=== PATIENT | male | born 1930 | race Caucasian/White ===

== ENCOUNTER 2017-01-22 09:22 | Emergency (ER) | payer MEDICARE, BC ==
[~2017-01-22 09:22] MED LIST: ASAB PO; LIPITOR10 PO; LIPITOR20 PO; MSCONT15 PO; MULTIPLE VIT PO; RAPAFLO
[2017-01-22 11:01] LABS: BASOPHILS 0.1 %; BASOPHILS ABSOLUTE 0.01 10/3/uL (0.0-0.16); EOSINOPHILS 2.3 %; EOSINOPHILS ABSOLUTE 0.27 10/3/uL (0.0-0.53); HEMATOCRIT 42.5 % (40.0-51.0); HEMOGLOBIN 14.5 g/dL (13.6-17.8); IMMATURE GRANULOCYTES 0.2 %; IMMATURE GRANULOCYTES ABSOLUTE 0.02 10/3/uL (0.0-0.11); LYMPHOCYTES 10.5 %; LYMPHOCYTES ABSOLUTE 1.21 10/3/uL (0.67-4.30); MEAN CORPUS HGB CONC 34.1 g/dL (32.0-36.0); MEAN CORPUSCULAR HEMOGLOB 34.1 pg (26.0-34.0); MEAN PLATELET VOLUME 9.8 fL (9.2-13.0); MONOCYTES 7.8 %; NEUTROPHILS 79.1 %; NEUTROPHILS ABSOLUTE 9.08 10/3/uL (2.02-8.40); PLATELET COUNT 193 10/3/uL (150-400); RBC DISTRIBUTION WIDTH 13.2 % (12.0-16.0); RED CELL COUNT 4.25 10/6/uL (4.7-6.1)
[2017-01-22 11:02] LABS: ER CBC TAT 0 Hrs 05 Mins; MANUAL DIFF NO %; WHITE BLOOD CELLS 11.5 10/3/uL (4.5-10.5)
[2017-01-22 11:06] LABS: ASCORBIC ACID (UR NOT ORDER) NEG (NEG); BILIRUBIN, URINE NEGATIVE (NEG); ER URINALYSIS TAT 0 Hrs 09 Mins; KETONE, URINE NEGATIVE (NEG); LEUKOCYTE ESTERASE(NOT OR NEG (NEG); NITRITE (URINE) NEG (NEG); WBC (NOT ORDERED) (RFLEX) 4 (0-5)
[2017-01-22 11:13] LABS: INTERNATIONAL NORMAL RATI 1.1 UNITS (-); PROTIME (NOT ORD) 14.4 SEC (12.0-14.5)
[2017-01-22 11:19] LABS: BUN (BLOOD UREA NITROGEN) 24 MG/DL (6-23); CALCIUM, SERUM 8.8 MG/DL (8.5-10.4); CHEST PAIN PROFILE TAT 0 Hrs 22 Mins; CHLORIDE, SERUM 105 MMOL/L (96-112); CO2 (CARBON DIOXIDE) 29 MMOL/L (24-34); CREATININE 1.25 MG/DL (0.70-1.30); GFR AFRICAN AMERICAN 60 ML/MIN (>=60); GFR NON AFRICAN AMERICAN 52 ML/MIN (>=60); POTASSIUM, SERUM 3.8 MMOL/L (3.5-5.3); SODIUM, SERUM 141 MMOL/L (135-148); TROPONIN I <0.02 NG/ML (<0.05)
[2017-01-22 11:21] LABS: GLUCOSE, SERUM 108 MG/DL (60-99)
[2017-07-26] MEDS ORDERED: NAMENDA10 MG PO (11:17)
[2017-07-26] MEDS ORDERED: TRIAMCINOLONE C80 GM TOP (11:17)
[2017-07-26] MEDS ORDERED: VITAMIN D2000 UNIT PO (11:17)
[2017-07-26] MEDS ORDERED: LIPITOR20 PO (11:18)
[2017-07-26] MEDS ORDERED: MULTIVIT/MIN PO (11:19)
[2017-07-26] MEDS ORDERED: ARICEPT5 PO (11:19)
[2017-07-26] MEDS ORDERED: ARICEPT10 PO (11:20)
[2017-07-26] MEDS ORDERED: MIRALAX POWDER1 PKT PO (11:20)
[2017-07-26] MEDS ORDERED: VITAMIN B PO (11:21)
== END 2017-01-22 15:43 | disposition home or self-care (01) ==
LOC: ER 09:22
PROVIDERS: Emergency Medicine
DX: I95.1 Orthostatic hypotension (principal); E86.0 Dehydration; Z79.82 Long term (current) use of aspirin; Z79.899 Other long term (current) drug therapy
CPT/HCPCS: 71020; 80048; 81001; 83735; 84484; 85025; 85610; 85730; 93005; 96360; 96361; 99285